=== PATIENT | female | born 1995 | race Caucasian/White ===

== ENCOUNTER 2017-06-28 19:04 | Emergency (ER) | payer MEDICAID ==
[~2017-06-28] VITALS: Ht 175.3 cm; Wt 99.8 kg
[2017-06-28 19:08] VITALS: BP_SYST 119
[2017-06-28 21:24] LABS: BASOPHILS # (AUTO) 0.1 K/uL (0.0-0.2); EOSINOPHILS # (AUTO) 0.1 K/uL (0.0-0.4); MONOCYTES # (AUTO) 0.7 K/uL (0.0-1.0); RED BLOOD CELL COUNT(AUTO) 4.17 MIL/uL (4.2-6.2); WHITE BLOOD COUNT (AUTO) 10.4 K/uL (4.8-10.8)
[2017-06-28 21:26] LABS: BASOPHILS % (AUTO) 0.6 % (0.0-2.0); EOSINOPHILS % (AUTO) 0.7 % (0.0-4.0); HEMATOCRIT 30.7 % (36-48); HEMOGLOBIN 9.9 g/dL (12.0-16.0); LYMPHOCYTES # (AUTO) 1.5 K/uL (1.0-5.5); LYMPHOCYTES % (AUTO) 14.1 % (20.5-51.5); MEAN CORPUSCULAR HEMOGLOBIN 24 pg (27-31); MEAN CORPUSCULAR HGB CONC 32 % (32-36); MEAN CORPUSCULAR VOLUME 74 fL (79.0-98.0); MONOCYTES % (AUTO) 6.6 % (1.7-9.3); PLATELET COUNT (AUTO) 333 K/uL (130-430); RED CELL DISTRIBUTION WIDTH 16.2 % (9.0-15.0)
[2017-06-28 21:33] LABS: CALCIUM 9.2 mg/dL (8.4-11.0); CREATININE 0.77 mg/dL (0.55-1.30); POTASSIUM 4.3 mmol/L (3.5-5.1)
[2017-06-28 21:35] LABS: ALBUMIN 3.8 g/dL (3.4-4.8); TOTAL BILIRUBIN 0.7 mg/dL (0.0-1.0)
[2017-06-28 21:47] LABS: BILIRUBIN,URINE NEGATIVE (NEGATIVE); BLOOD, URINE 2+ (NEGATIVE); CLARITY/URINE SL HAZY (CLEAR); COLOR,URINE YELLOW (YELLOW); GLUCOSE,URINE NEGATIVE (NEGATIVE); KETONES,URINE NEGATIVE (NEGATIVE); LEUKOCYTE ESTERASE ,URINE NEGATIVE (NEGATIVE); NITRITE, URINE NEGATIVE (NEGATIVE); PROTEIN URINE NEGATIVE (NEGATIVE)
[2017-06-28 22:03] LABS: WBC,URINE 0-3 /HPF (0-3)
[2017-06-28 22:04] LABS: BACTERIA,URINE FEW /HPF (None Seen); URINE AMORPHOUS URATE 2+ /HPF (None Seen)
[2017-06-28 22:20] VITALS: BP_SYST 122
== END 2017-06-28 22:20 | disposition home or self-care (01) ==
LOC: SED 19:04
DX: K80.80 Other cholelithiasis without obstruction (principal); N39.0 Urinary tract infection, site not specified
CPT/HCPCS: 36415; 76700-TC; 80053; 81000-TC; 81025; 82150-TC; 83690-TC; 85025; 93005; 99285

== ENCOUNTER 2023-04-02 17:53 | Emergency (ER) | payer MEDICAID ==
[~2023-04-02] VITALS: Ht 167.6 cm; Wt 124.7 kg
[2023-04-02 18:26] VITALS: BP_SYST 129
[2023-04-02] MEDS ORDERED: TYLL650 PO (19:59)
[2023-04-02] MEDS ORDERED: AMOX250S64 PO (19:59)
[2023-04-02] MEDS ORDERED: DEXAMETHASONE SOD PHOSPHATE 10 MG/ML VIAL IM ONE (20:00)
[2023-04-02] MEDS ORDERED: ONDANSETRON 4 MG ODT TAB PO ONE (20:00)
[2023-04-02] MEDS ORDERED: KETOROLAC TROMETHAMINE 30 MG VIAL IM ONE (20:00)
[2023-04-02 20:09] VITALS: BP_SYST 129
== END 2023-04-02 20:09 | disposition home or self-care (01) ==
LOC: SED 17:53
DX: J03.90 Acute tonsillitis, unspecified (principal); R50.9 Fever, unspecified; R05.9 Cough, unspecified; Z79.899 Other long term (current) drug therapy
CPT/HCPCS: 99284; 96372; Q0162; J1100; J1885

== ENCOUNTER 2023-08-20 13:55 | Emergency (ER) | payer SELFPAY ==
[~2023-08-20] VITALS: Ht 170.2 cm; Wt 119.3 kg
[~2023-08-20 13:55] MED LIST: AMOX250S64 PO; TYLL650 PO
[2023-08-20 14:03] VITALS: BP_SYST 109; PULSE 117; RESP 18; TEMP 97.4; O2SAT 96
[2023-08-20] MEDS ORDERED: AMOX500C2 PO (15:02)
[2023-08-20] MEDS ORDERED: IBUP-1971 PO (15:03)
[2023-08-20 16:22] VITALS: BP_SYST 117; PULSE 98; RESP 16; TEMP 97.8; O2SAT 99
== END 2023-08-20 16:24 | disposition home or self-care (01) ==
LOC: SED 13:55
DX: J03.90 Acute tonsillitis, unspecified (principal); R50.9 Fever, unspecified; H92.02 Otalgia, left ear; Z79.899 Other long term (current) drug therapy
CPT/HCPCS: 99283

== ENCOUNTER 2023-09-17 10:46 | Emergency (ER) | payer MEDICAID ==
[~2023-09-17] VITALS: Ht 170.2 cm; Wt 113.4 kg
[~2023-09-17 10:46] MED LIST changes: +AMOX500C2 PO; +IBUP-1971 PO
[2023-09-17 10:50] VITALS: BP_SYST 152; PULSE 75; RESP 22; TEMP 98.3; O2SAT 98
[2023-09-17 12:11] LABS: INFLUENZA TYPE A Negative (NEGATIVE); INFLUENZA TYPE B NEGATIVE (NEGATIVE)
[2023-09-17] MEDS ORDERED: PSEU30TA36 PO (13:15)
[2023-09-17] MEDS ORDERED: ALBMDI INH (13:15)
[2023-09-17 13:28] VITALS: BP_SYST 97; PULSE 75; RESP 22; TEMP 98.3; O2SAT 98
== END 2023-09-17 13:27 | disposition home or self-care (01) ==
LOC: SED 10:46
DX: J40 Bronchitis, not specified as acute or chronic (principal); R05.9 Cough, unspecified; R09.81 Nasal congestion; J02.9 Acute pharyngitis, unspecified; Z79.899 Other long term (current) drug therapy; Z20.822 Contact with and (suspected) exposure to COVID-19
CPT/HCPCS: 36415; 71045; 99284

== ENCOUNTER 2023-12-23 18:47 | Emergency (ER) | payer MEDICAID ==
[~2023-12-23] VITALS: Ht 167.6 cm; Wt 111.1 kg
[~2023-12-23 18:47] MED LIST changes: +ALBMDI INH; +PSEU30TA36 PO
[2023-12-23 19:13] VITALS: BP_SYST 126; PULSE 76; RESP 19; TEMP 97.1; O2SAT 100
[2023-12-23 20:11] LABS: BILIRUBIN,URINE NEGATIVE (NEGATIVE); BLOOD, URINE 3+ (NEGATIVE); COLOR,URINE YELLOW (YELLOW); GLUCOSE,URINE NEGATIVE (NEGATIVE); KETONES,URINE NEGATIVE (NEGATIVE); LEUKOCYTE ESTERASE ,URINE NEGATIVE (NEGATIVE); NITRITE, URINE NEGATIVE (NEGATIVE); PH,URINE 5.5 (5.0-8.0); PROTEIN URINE 1+ (NEGATIVE); UROBILINOGEN,URINE 0.2 (0.2-1.0)
[2023-12-23 20:16] LABS: CLARITY/URINE CLOUDY (CLEAR)
[2023-12-23 20:25] VITALS: TEMP 97.1
[2023-12-23 20:46] LABS: RBC,URINE >100 /HPF (0-3)
[2023-12-23 20:47] LABS: BACTERIA,URINE FEW /HPF (None Seen); WBC,URINE 0-3 /HPF (0-3)
[2023-12-23] MEDS: KETOROLAC TROMETHAMINE 30 MG VIAL IM ONE (20:49)
[2023-12-23 20:52] LABS: BASOPHILS # (AUTO) 0.1 K/uL (0.0-0.2); BASOPHILS % (AUTO) 1.3 % (0.0-2.0); EOSINOPHILS # (AUTO) 0.1 K/uL (0.0-0.4); EOSINOPHILS % (AUTO) 1.3 % (0.0-4.0); HEMATOCRIT 25.7 % (36-48); LYMPHOCYTES # (AUTO) 2.8 K/uL (1.0-5.5); LYMPHOCYTES % (AUTO) 37.7 % (20.5-51.5); MEAN CORPUSCULAR HEMOGLOBIN 19 pg (27-31); MEAN CORPUSCULAR HGB CONC 31 % (32-36); MEAN CORPUSCULAR VOLUME 63 fL (79.0-98.0); MONOCYTES # (AUTO) 0.6 K/uL (0.0-1.0); MONOCYTES % (AUTO) 8.4 % (1.7-9.3); NEUTROPHILS # (AUTO) 3.8 K/uL (1.8-7.7); NEUTROPHILS % (AUTO) 51.3 % (40.0-70.0); PLATELET COUNT (AUTO) 447 K/uL (130-430); RED BLOOD CELL COUNT(AUTO) 4.11 MIL/uL (4.2-6.2); RED CELL DISTRIBUTION WIDTH 17.9 % (9.0-15.0); WHITE BLOOD COUNT (AUTO) 7.3 K/uL (4.8-10.8)
[2023-12-23 21:06] LABS: CALCIUM 8.9 mg/dL (8.4-11.0); CREATININE 0.55 mg/dL (0.55-1.30); POTASSIUM 3.5 mmol/L (3.5-5.1)
[2023-12-23 21:10] LABS: INR 0.9 (0.8-1.2); PROTHROMBIN TIME 9.8 SECS (9.5-12.5)
[2023-12-23 21:48] LABS: ANISOCYTOSIS 1+; HYPOCHROMASIA 3+; POLYCHROMASIA 1+; STOMATOCYTES FEW
[2023-12-23 21:49] LABS: OVALOCYTES MODERATE
[2023-12-23] MEDS ORDERED: NORG1TAB10 PO (22:29)
[2023-12-23] MEDS: ESTROGENS,CONJUGATED 25 MG in NS 50 ML IV ONE (22:36)
[2023-12-23] MEDS ORDERED: ESTROGENS,CONJUGATED 25 MG VIAL ONE (22:37)
[2023-12-23 23:15] VITALS: BP_SYST 122; PULSE 96; RESP 17; O2SAT 99
== END 2023-12-23 23:15 | disposition home or self-care (01) ==
LOC: SED 18:47
DX: N93.8 Other specified abnormal uterine and vaginal bleeding (principal); R10.30 Lower abdominal pain, unspecified; Z79.899 Other long term (current) drug therapy
CPT/HCPCS: 99285; 96365; 76856; 80048; 81000; 81001; 85025; 85610; 85730; 86886; 86900; 86901; 36415; 81025; 96372; 81015; J1885; J1410

== ENCOUNTER 2023-12-30 21:47 | Inpatient (IN) | payer MEDICAID ==
[~2023-12-30] VITALS: Ht 167.6 cm; Wt 117.9 kg
[~2023-12-30 21:47] MED LIST changes: +NORG1TAB10 PO
[2023-12-30 22:04] VITALS: BP_SYST 128; PULSE 79; RESP 16; TEMP 97.9; O2SAT 100
[2023-12-30 23:03] LABS: MEAN CORPUSCULAR HEMOGLOBIN 19 pg (27-31); MEAN CORPUSCULAR HGB CONC 31 % (32-36); MEAN CORPUSCULAR VOLUME 62 fL (79.0-98.0); PLATELET COUNT (AUTO) 519 K/uL (130-430); RED BLOOD CELL COUNT(AUTO) 3.56 MIL/uL (4.2-6.2); RED CELL DISTRIBUTION WIDTH 18.1 % (9.0-15.0); WHITE BLOOD COUNT (AUTO) 9.1 K/uL (4.8-10.8)
[2023-12-30 23:07] LABS: HEMOGLOBIN 6.8 g/dL (12.0-16.0)
[2023-12-30 23:08] LABS: HEMATOCRIT 22.1 % (36-48)
[2023-12-30 23:19] LABS: BASOPHILS % (MANUAL) 0 % (0-2); EOSINOPHILS % (MANUAL) 1 % (0-7); LYMPHOCYTES % (MANUAL) 31 % (20-46); MONOCYTES % (MANUAL) 5 % (0-11)
[2023-12-30 23:20] LABS: ANISOCYTOSIS 2+; HYPOCHROMASIA 2+; OVALOCYTES MODERATE; PLATELET ESTIMATE INCREASED (ADEQUATE)
[2023-12-30 23:21] LABS: POLYCHROMASIA 1+
[2023-12-30 23:28] LABS: CALCIUM 8.7 mg/dL (8.4-11.0); CREATININE 0.59 mg/dL (0.55-1.30); POTASSIUM 3.9 mmol/L (3.5-5.1)
[2023-12-30 23:33] LABS: ALBUMIN 3.1 g/dL (3.4-4.8); TOTAL BILIRUBIN 0.1 mg/dL (0.0-1.0); TOTAL PROTEIN, SERUM 7.6 g/dL (6.4-8.3)
[2023-12-31 01:46] LABS: BILIRUBIN,URINE NEGATIVE (NEGATIVE); BLOOD, URINE 3+ (NEGATIVE); CLARITY/URINE SL CLOUDY (CLEAR); COLOR,URINE YELLOW (YELLOW); GLUCOSE,URINE NEGATIVE (NEGATIVE); KETONES,URINE NEGATIVE (NEGATIVE); LEUKOCYTE ESTERASE ,URINE TRACE (NEGATIVE); NITRITE, URINE NEGATIVE (NEGATIVE); PH,URINE 6.5 (5.0-8.0); PROTEIN URINE NEGATIVE (NEGATIVE); UROBILINOGEN,URINE 0.2 (0.2-1.0)
[2023-12-31 02:02] LABS: RBC,URINE >100 /HPF (0-3)
[2023-12-31 02:03] LABS: BACTERIA,URINE FEW /HPF (None Seen)
[2023-12-31 02:47] VITALS: BP_SYST 122; PULSE 73; RESP 18; TEMP 97.6
[2023-12-31 03:10] VITALS: O2SAT 100
[2023-12-31 06:23] LABS: BASOPHILS # (AUTO) 0.1 K/uL (0.0-0.2); BASOPHILS % (AUTO) 1.4 % (0.0-2.0); EOSINOPHILS # (AUTO) 0.1 K/uL (0.0-0.4); EOSINOPHILS % (AUTO) 0.9 % (0.0-4.0); HEMATOCRIT 23.7 % (36-48); HEMOGLOBIN 7.4 g/dL (12.0-16.0); LYMPHOCYTES # (AUTO) 2.1 K/uL (1.0-5.5); LYMPHOCYTES % (AUTO) 30.4 % (20.5-51.5); MEAN CORPUSCULAR HEMOGLOBIN 20 pg (27-31); MEAN CORPUSCULAR HGB CONC 31 % (32-36); MEAN CORPUSCULAR VOLUME 64 fL (79.0-98.0); MONOCYTES # (AUTO) 0.5 K/uL (0.0-1.0); MONOCYTES % (AUTO) 7.3 % (1.7-9.3); NEUTROPHILS # (AUTO) 4.1 K/uL (1.8-7.7); PLATELET COUNT (AUTO) 456 K/uL (130-430); RED BLOOD CELL COUNT(AUTO) 3.71 MIL/uL (4.2-6.2); RED CELL DISTRIBUTION WIDTH 19.8 % (9.0-15.0); WHITE BLOOD COUNT (AUTO) 6.9 K/uL (4.8-10.8)
[2023-12-31 08:00] VITALS: BP_SYST 116; PULSE 73; RESP 20; TEMP 97; O2SAT 98
[2023-12-31] MEDS ORDERED: LORazepam 2 MG/ML VIAL IVP PRN (10:00)
[2023-12-31] MEDS ORDERED: ACETAMINOPHEN 325 MG TABLET PO PRN (10:00)
[2023-12-31] MEDS ORDERED: NALOXONE HCL 0.4 MG/ML AMP (NARCAN) IVP PRN ×2 (10:00)
[2023-12-31 12:00] VITALS: BP_SYST 110; PULSE 75; RESP 18; TEMP 97.6; O2SAT 98
[2023-12-31] MEDS: NORMAL SALINE 5 ML DISP.SYRIN IVF SCH (14:16)
[2023-12-31 16:00] VITALS: BP_SYST 117; PULSE 87; RESP 18; TEMP 97.8; O2SAT 98
[2023-12-31 20:20] VITALS: BP_SYST 122; PULSE 93; RESP 18; TEMP 98.4; O2SAT 98
[2023-12-31] MEDS: HYDROcodone/ACETAMIN 10-325 MG TAB PO PRN (20:40)
[2023-12-31] MEDS: ENOXAPARIN SODIUM 120 MG/0.8 ML SYRINGE SUBCUT SCH (23:08)
[2023-12-31] MEDS: MORPHINE 2 MG/ML INJ. SYRINGE IVP PRN (23:12)
[2023-12-31] MEDS: ONDANSETRON HCL 4 MG/2 ML VIAL IVP PRN (23:49)
[2024-01-01 00:18] VITALS: BP_SYST 111; PULSE 85; RESP 18; TEMP 97
[2024-01-01 04:47] LABS: BASOPHILS % (AUTO) 0.2 % (0.0-2.0); EOSINOPHILS # (AUTO) 0.1 K/uL (0.0-0.4); EOSINOPHILS % (AUTO) 0.9 % (0.0-4.0); HEMATOCRIT 24.1 % (36-48); HEMOGLOBIN 7.4 g/dL (12.0-16.0); LYMPHOCYTES # (AUTO) 2.8 K/uL (1.0-5.5); LYMPHOCYTES % (AUTO) 29.8 % (20.5-51.5); MEAN CORPUSCULAR HEMOGLOBIN 20 pg (27-31); MEAN CORPUSCULAR HGB CONC 31 % (32-36); MEAN CORPUSCULAR VOLUME 64 fL (79.0-98.0); MONOCYTES # (AUTO) 0.6 K/uL (0.0-1.0); MONOCYTES % (AUTO) 6.1 % (1.7-9.3); NEUTROPHILS # (AUTO) 5.9 K/uL (1.8-7.7); PLATELET COUNT (AUTO) 340 K/uL (130-430); RED BLOOD CELL COUNT(AUTO) 3.77 MIL/uL (4.2-6.2); RED CELL DISTRIBUTION WIDTH 19.5 % (9.0-15.0); WHITE BLOOD COUNT (AUTO) 9.4 K/uL (4.8-10.8)
[2024-01-01 05:04] LABS: ALBUMIN 2.7 g/dL (3.4-4.8); CALCIUM 8.4 mg/dL (8.4-11.0); CREATININE 0.58 mg/dL (0.55-1.30); POTASSIUM 3.9 mmol/L (3.5-5.1); TOTAL BILIRUBIN 0.2 mg/dL (0.0-1.0); TOTAL PROTEIN, SERUM 6.8 g/dL (6.4-8.3)
[2024-01-01 08:00] VITALS: BP_SYST 132; PULSE 79; RESP 16; TEMP 96.4; O2SAT 99
[2024-01-01 12:00] VITALS: BP_SYST 114; PULSE 100; RESP 20; TEMP 96.8; O2SAT 95
[2024-01-01 16:00] VITALS: BP_SYST 109; PULSE 93; RESP 20; TEMP 97.7; O2SAT 97
[2024-01-01] MEDS: HYDROcodone/ACETAMIN 5-325 MG TAB (NORCO/ VICODIN) PO PRN (16:25)
[2024-01-01 19:00] VITALS: O2SAT 95
[2024-01-01 20:00] VITALS: BP_SYST 106; PULSE 74; RESP 16; TEMP 99.6; O2SAT 98
[2024-01-01] MEDS: FERROUS SULFATE 325 MG TABLET.DR PO SCH (20:34)
[2024-01-01] MEDS: ACETAMINOPHEN 325 MG TABLET PO PRN (21:49)
[2024-01-02] VITALS: BP_SYST 112; PULSE 82; RESP 16; TEMP 98.8; O2SAT 98
[2024-01-02 04:00] VITALS: RESP 20
[2024-01-02 05:31] LABS: BASOPHILS % (AUTO) 0.4 % (0.0-2.0); EOSINOPHILS # (AUTO) 0.1 K/uL (0.0-0.4); EOSINOPHILS % (AUTO) 1.2 % (0.0-4.0); HEMATOCRIT 24.3 % (36-48); HEMOGLOBIN 7.5 g/dL (12.0-16.0); LYMPHOCYTES # (AUTO) 2.7 K/uL (1.0-5.5); MEAN CORPUSCULAR HEMOGLOBIN 20 pg (27-31); MEAN CORPUSCULAR HGB CONC 31 % (32-36); MEAN CORPUSCULAR VOLUME 64 fL (79.0-98.0); MONOCYTES # (AUTO) 0.5 K/uL (0.0-1.0); MONOCYTES % (AUTO) 7.3 % (1.7-9.3); NEUTROPHILS # (AUTO) 3.6 K/uL (1.8-7.7); NEUTROPHILS % (AUTO) 52.1 % (40.0-70.0); PLATELET COUNT (AUTO) 335 K/uL (130-430); RED BLOOD CELL COUNT(AUTO) 3.79 MIL/uL (4.2-6.2); RED CELL DISTRIBUTION WIDTH 19.6 % (9.0-15.0); RETICULOCYTE COUNT 2.1 % (0.5-1.5); WHITE BLOOD COUNT (AUTO) 6.8 K/uL (4.8-10.8)
[2024-01-02 07:44] LABS: CALCIUM 8.5 mg/dL (8.4-11.0); CREATININE 0.58 mg/dL (0.55-1.30); POTASSIUM 3.8 mmol/L (3.5-5.1)
[2024-01-02 07:49] LABS: TOTAL IRON BIND. CAPACITY 504 ug/dL (250-450)
[2024-01-02 10:35] VITALS: O2SAT 98
[2024-01-02 12:18] VITALS: BP_SYST 113; PULSE 91; RESP 18; TEMP 98.2; O2SAT 97
[2024-01-02 16:19] VITALS: BP_SYST 118; PULSE 96; RESP 18; TEMP 98.8; O2SAT 97
[2024-01-02] MEDS: DOCUSATE SODIUM 100 MG CAPSULE PO ONE (18:28)
[2024-01-02 20:00] VITALS: BP_SYST 109; PULSE 85; RESP 18; TEMP 97.8; O2SAT 98
[2024-01-02] MEDS: DOCUSATE SODIUM 100 MG CAPSULE PO SCH (22:07)
[2024-01-03] VITALS: BP_SYST 108; PULSE 86; RESP 18; TEMP 98.1; O2SAT 99
[2024-01-03 06:15] LABS: BASOPHILS # (AUTO) 0.1 K/uL (0.0-0.2); BASOPHILS % (AUTO) 0.7 % (0.0-2.0); EOSINOPHILS # (AUTO) 0.1 K/uL (0.0-0.4); EOSINOPHILS % (AUTO) 1.2 % (0.0-4.0); HEMATOCRIT 24.5 % (36-48); HEMOGLOBIN 7.7 g/dL (12.0-16.0); MEAN CORPUSCULAR HEMOGLOBIN 20 pg (27-31); MEAN CORPUSCULAR HGB CONC 31 % (32-36); MEAN CORPUSCULAR VOLUME 64 fL (79.0-98.0); MONOCYTES # (AUTO) 0.7 K/uL (0.0-1.0); MONOCYTES % (AUTO) 6.8 % (1.7-9.3); NEUTROPHILS # (AUTO) 6.7 K/uL (1.8-7.7); NEUTROPHILS % (AUTO) 63.3 % (40.0-70.0); RED BLOOD CELL COUNT(AUTO) 3.82 MIL/uL (4.2-6.2); RED CELL DISTRIBUTION WIDTH 19.9 % (9.0-15.0); WHITE BLOOD COUNT (AUTO) 10.6 K/uL (4.8-10.8)
[2024-01-03 06:46] LABS: CALCIUM 8.9 mg/dL (8.4-11.0); CREATININE 0.6 mg/dL (0.55-1.30); POTASSIUM 3.8 mmol/L (3.5-5.1)
[2024-01-03 08:55] VITALS: BP_SYST 107; PULSE 82; RESP 17; TEMP 98; O2SAT 98
[2024-01-03 08:56] VITALS: O2SAT 98
[2024-01-03 09:14] LABS: ANISOCYTOSIS 1+; HYPOCHROMASIA 1+; OVALOCYTES MODERATE; STOMATOCYTES FEW; TEAR DROP CELLS RARE
[2024-01-03 09:16] LABS: PLATELET COUNT (AUTO) 436 K/uL (130-430)
[2024-01-03] MEDS ORDERED: DOCU-144 PO (11:59)
[2024-01-03] MEDS ORDERED: FERR-69 PO (11:59)
[2024-01-03] MEDS ORDERED: APIX5TAB PO (11:59)
[2024-01-03 12:43] VITALS: BP_SYST 110; PULSE 82; RESP 16; TEMP 98; O2SAT 65
[2024-01-03 16:33] VITALS: BP_SYST 108; PULSE 77; RESP 18; TEMP 98.6; O2SAT 99
== END 2024-01-03 14:00 | disposition home or self-care (01) | DRG 663 ==
LOC: SED 21:47 → SMU 12-31 00:41
PROVIDERS: ADMIT Preventive Medicine Preventive Medicine/Occupational Environmental Medicine; ATTEND Preventive Medicine Preventive Medicine/Occupational Environmental Medicine
PROC: 30233N1 Transfusion of Nonautologous Red Blood Cells into Peripheral Vein, Percutaneous Approach (ICD-10-PCS; principal; 2023-12-31)
DX: D50.8 Other iron deficiency anemias (principal); E44.1 Mild protein-calorie malnutrition; I82.432 Acute embolism and thrombosis of left popliteal vein; E88.09 Other disorders of plasma-protein metabolism, not elsewhere classified; D75.839 Thrombocytosis, unspecified; N92.0 Excessive and frequent menstruation with regular cycle; E66.9 Obesity, unspecified; Z68.41 Body mass index [BMI] 40.0-44.9, adult; Z79.01 Long term (current) use of anticoagulants
CPT/HCPCS: 36415; 76830; 76857; 80048; 80053; 81000; 81001; 81015; 82670; 83540; 83550; 84702; 85007; 85025; 85027; 85044; 86886; 86900; 86901; 86920; 87086; 93970; 99291; J1650; J2270; J2405; P9021